=== PATIENT | female | born 1995 | race American Indian/Alaskan Native ===

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

== ENCOUNTER 2020-03-29 19:11 | Emergency (ER) | payer BC, OTHER ==
[2020-03-29 20:08] VITALS: BP 124/88
--- NOTE | 2020-03-29 20:23 | Emergency Department Report ---
- General Chief complaint: Wound/Laceration Stated complaint: NIPPLE RING STUCK/INFECTED Time Seen by Provider: 03/29/20 20:18 Source: patient Mode of arrival: Ambulatory Limitations: No Limitations - History of Present Illness Initial comments: Patient is a 24-year-old female presents emergency room complaints of a nipple ring being stuck in the right nipple that began a couple of hours ago. She states this morning she was not having any issues. She states that she has noticed a small amount of bleeding. She states that she tried to put it back but was not able to get it to come out. She denies any fever or drainage. She states that she had the piercing done on November 2019. She states that she has not had any other issues since having the piercing place until today. She denies any past medical history. She has an allergy to hydrocodone. - Related Data Previous Rx's Medication Instructions Recorded Last Taken Type Acetaminophen/Codeine [Tylenol #3] 1 tab PO Q6H PRN #12 tab 06/06/16 Unknown Rx Erythromycin [Erythromycin Ophth 1 cm OD QID 7 Days tube 06/06/16 Unknown Rx Oint] Ibuprofen [Motrin] 600 mg PO Q8H PRN #15 tablet 06/06/16 Unknown Rx methOCARBAMOL [Robaxin TAB] 500 mg PO Q6H PRN #15 tablet 06/06/16 Unknown Rx Neomycin/Bacitracin/Polymyxinb 1 applicatio TP BID #14 oint...g. 03/29/20 Unknown Rx [Triple Antibiotic Ointment] Allergies Allergy/AdvReac Type Severity Reaction Status Date / Time hydrocodone Allergy Nausea Verified 04/25/16 15:29 Abscess Boil HPI - HPI Chief Complaint: Wound/Laceration Stated Complaint: NIPPLE RING STUCK/INFECTED Time Seen by Provider: 03/29/20 20:18 Home Medications: Previous Rx's Medication Instructions Recorded Last Taken Type Acetaminophen/Codeine [Tylenol #3] 1 tab PO Q6H PRN #12 tab 06/06/16 Unknown Rx Erythromycin [Erythromycin Ophth 1 cm OD QID 7 Days tube 06/06/16 Unknown Rx Oint] Ibuprofen [Motrin] 600 mg PO Q8H PRN #15 tablet 06/06/16 Unknown Rx methOCARBAMOL [Robaxin TAB] 500 mg PO Q6H PRN #15 tablet 06/06/16 Unknown Rx Neomycin/Bacitracin/Polymyxinb 1 applicatio TP BID #14 oint...g. 03/29/20 Unknown Rx [Triple Antibiotic Ointment] Allergies/Adverse Reactions: Allergies Allergy/AdvReac Type Severity Reaction Status Date / Time hydrocodone Allergy Nausea Verified 04/25/16 15:29 ED Review of Systems ROS: Stated complaint: NIPPLE RING STUCK/INFECTED Other details as noted in HPI Comment: All other systems reviewed and negative ED Past Medical Hx - Past Medical History Previous Medical History?: Yes Hx Asthma: Yes Additional medical history: TBI - Surgical History Past Surgical History?: No - Social History Smoking Status: Never Smoker Substance Use Type: None - Medications Home Medications: Home Medications Medication Instructions Recorded Confirmed Last Taken Type Acetaminophen/Codeine [Tylenol #3] 1 tab PO Q6H PRN #12 tab 06/06/16 Unknown Rx Erythromycin [Erythromycin Ophth 1 cm OD QID 7 Days tube 06/06/16 Unknown Rx Oint] Ibuprofen [Motrin] 600 mg PO Q8H PRN #15 tablet 06/06/16 Unknown Rx methOCARBAMOL [Robaxin TAB] 500 mg PO Q6H PRN #15 tablet 06/06/16 Unknown Rx Neomycin/Bacitracin/Polymyxinb 1 applicatio TP BID #14 oint...g. 03/29/20 Unknown Rx [Triple Antibiotic Ointment] ED Physical Exam - General Limitations: No Limitations General appearance: alert, in no apparent distress - Head Head exam: Present: atraumatic, normocephalic - Eye Eye exam: Present: normal appearance - ENT ENT exam: Present: mucous membranes moist - Respiratory Respiratory exam: Absent: respiratory distress, accessory muscle use - Neurological Exam Neurological exam: Present: alert, oriented X3 - Psychiatric Psychiatric exam: Present: normal affect, normal mood - Skin Skin exam: Present: other (there is a horizontal barbel nipple piericing in the right nipple, only can visualize one ball at the end of the barbell, the other ball is stuck, no active bleeding, no fluctuance, no nipple discharge, no erythema) ED Course Vital Signs 03/29/20 20:05 Temperature 98.4 F Pulse Rate 96 H Respiratory 16 Rate Blood Pressure 124/88 O2 Sat by Pulse 99 Oximetry - Procedure Description Procedures done: there is an opening present to the medial nipple where the other half of the barbell previously used to be, a catheter is easily able to go in and out of the space without obstruction, able to push barbell ball back out through the original hole without complication, no signficant bleeding ED Medical Decision Making - Medical Decision Making Patient is a 24-year-old female presents emergency room complaints of a nipple ring being stuck in the right nipple that began a couple of hours ago. She states this morning she was not having any issues. She states that she has noticed a small amount of bleeding. She states that she tried to put it back but was not able to get it to come out. She denies any fever or drainage. She states that she had the piercing done on November 2019. She states that she has not had any other issues since having the piercing place until today. She denies any past medical history. She has an allergy to hydrocodone. vitals are normal. on exam: there is a horizontal barbel nipple piericing in the right nipple, only can visualize one ball at the end of the barbell, the other ball is stuck, no active bleeding, no fluctuance, no nipple discharge, no erythema. With manual manipulation able to place nipple ring back in desired location. There are no signs of cellulitis or abscess at this time. Patient given prescription for triple antibiotic ointment. Advised patient Please use medication as prescribed. Wash with antibacterial soap and water twice a day and pat dry. No hot tub, no pool. Please follow-up with your primary care doctor for reexamination. You need to change the ball size on both ends of the barbell so that way does not get stuck back inside the nipple. Return to emergency room for any new or worsening symptoms. Critical care attestation.: If time is entered above; I have spent that time in minutes in the direct care of this critically ill patient, excluding procedure time. ED Disposition Clinical Impression: Foreign body Disposition: [id number] TO HOME OR SELFCARE Is pt being admited?: No Does the pt Need Aspirin: No Condition: Stable Additional Instructions: Please use medication as prescribed. Wash with antibacterial soap and water twice a day and pat dry. No hot tub, no pool. Please follow-up with your [facility] care doctor for reexamination. You need to change the ball size on both ends of the barbell so that way does not get stuck back inside the nipple. Return to emergency room for any new or worsening symptoms. Prescriptions: Neomycin/Bacitracin/Polymyxinb [Triple Antibiotic Ointment] 1 applicatio TP BID #14 oint...g. Referrals: ANA SILVER MD [Staff Physician] - 3-5 Days [facility] [Provider Group] - 3-5 Days Time of Disposition: 20:22 Print Language: ARABIC
== END 2020-03-29 20:46 | disposition home or self-care (01) ==
LOC: ED 19:11
DX: T14.8XXA Other injury of unspecified body region, initial encounter (principal); J45.909 Unspecified asthma, uncomplicated; Z79.1 Long term (current) use of non-steroidal anti-inflammatories (NSAID); Z79.2 Long term (current) use of antibiotics; Z79.899 Other long term (current) drug therapy; Z88.8 Allergy status to other drugs, medicaments and biological substances; X58.XXXA Exposure to other specified factors, initial encounter; Y93.89 Activity, other specified; Y92.89 Other specified places as the place of occurrence of the external cause; Y99.8 Other external cause status
CPT/HCPCS: 99282